=== PATIENT | female | born 1980 | race Caucasian/White ===

== ENCOUNTER 2017-01-01 10:50 | Day surgery (SDC) | payer MEDICAID, OTHER ==
[2016-12-31 16:08] VITALS: BMI 40.1
[2017-01-01] VITALS (15 sets, daily range): BP systolic 109–127; BP diastolic 52–76; PULSE 68–91; RESP 13–35; Ht 167.6 cm; Wt 111.7 kg
[~2017-01-01] VITALS: Ht 167.6 cm; Wt 111.7 kg
[2017-01-01] MEDS ORDERED: PROCHLORPERAZINE 10 MG INJ IV PRN (11:30)
[2017-01-01] MEDS ORDERED: DIPHENHYDRAMINE 50 MG INJ IV PRN (11:30)
[2017-01-01] MEDS ORDERED: MEPERIDINE 25 MG INJ IV PRN (11:30)
[2017-01-01] MEDS ORDERED: ONDANSETRON 4 MG INJ IV PRN ×2 (11:30→14:00)
[2017-01-01] MEDS ORDERED: HYDROmorphONE (0.2 MG/ML) 10ML SYG IV PRN ×2 (11:30)
[2017-01-01] MEDS ORDERED: OXYCODONE/ACETAMINOPHEN (5/325) TAB PO PRN ×4 (11:30→14:00)
[2017-01-01] MEDS ORDERED: FENTAnyl 50 MCG/ML VIAL IV PRN (11:30)
[2017-01-01] MEDS ORDERED: LIDOCAINE 2% (SDV) 5 ML INJ ONE (12:13)
[2017-01-01] MEDS ORDERED: MIDAZOLAM 1 MG/ML 2 ML INJ ONE (12:13)
[2017-01-01] MEDS ORDERED: SUCCINYLCHOLINE CHLORIDE 100 MG/5 ML SYG IV ONE (12:13)
[2017-01-01] MEDS ORDERED: PROPOFOL 20 ML ONE (12:13)
[2017-01-01] MEDS ORDERED: FENTAnyl 50 MCG/ML VIAL ONE (12:13)
[2017-01-01] MEDS ORDERED: BUPIVACAINE 0.5%/EPI (SDV) 10 ML INJ ONE (12:22)
[2017-01-01] MEDS ORDERED: CEFAZOLIN 1 GM INJ ONE (13:09)
[2017-01-01] MEDS ORDERED: ROCURONIUM 50 MG INJ ONE (13:09)
[2017-01-01] MEDS ORDERED: DEXAMETHASONE 4 MG/ML 1 ML INJ ONE (13:14)
[2017-01-01] MEDS ORDERED: METOCLOPRAMIDE 10 MG INJ ONE (13:14)
[2017-01-01] MEDS ORDERED: ONDANSETRON 4 MG INJ ONE (13:14)
[2017-01-01] MEDS ORDERED: HYDROmorphONE 2 MG/ML SYG ONE (13:31)
[2017-01-01] MEDS ORDERED: KETOROLAC 30 MG INJ ONE (13:31)
[2017-01-01] MEDS ORDERED: SUGAMMADEX SODIUM 200 MG/2 ML VIAL IV ONE (13:38)
--- NOTE | 2017-01-01 13:52 | OPR ---
Date/Time of Note Date/Time of Note DATE: 01/01/17 TIME: 13:49 Operative Report Preoperative Diagnosis Multiparity Postoperative Diagnosis Same. Operation/Procedure Performed Laparoscopic bilateral tubal ligation. Surgeon: ADELA SANCHES MD Second assist: KIN MOTA MD Anesthesia: general Estimated Blood Loss: minimal Complications: None ADELA SANCHES MD Jan 01, 2017 13:52
--- NOTE | 2017-01-01 13:53 | PD.PPDC ---
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 Condition Patient Condition: Good Diet Diet: Resume Regular Diet Activity/Restrictions Activity: Normal Activity May Shower Restrictions: No Lifting No Sexual Activity Nothing in the Vagina No [place] Wound/Drain Care Instructions Wound/Drain Care Instructions: Keep clean and dry Follow-up Follow-up with Physician: 2, Week/Weeks Return to clinic for [facility] MANAGER Instructions: Fever greater than 101 Worsening abdominal pain More than 2 pads per hour Unable to tolerate diet Surgical Instructions: Incisional Drainage Incisional Redness (Shower and change Band aids daily.) ADELA SANCHES MD Jan 01, 2017 13:53
[2017-01-01] MEDS ORDERED: LACTATED RINGER'S 1,000 ML IV SCH (14:00)
[2017-01-01] MEDS ORDERED: ACETAMINOPHEN 325 MG TAB PO PRN (14:00)
[2017-01-01] MEDS ORDERED: morphine 2 MG INJ IV PRN (14:00)
[2017-01-01] MEDS ORDERED: IBUPROFEN 600 MG TAB PO PRN (14:00)
--- NOTE | 2017-01-02 07:54 | OPR ---
DATE OF OPERATION: 01/01/2017 PREOPERATIVE DIAGNOSIS: Multiparity. POSTOPERATIVE DIAGNOSIS: Multiparity. OPERATIVE PROCEDURE: Laparoscopic bilateral tubal ligation. SURGEON: Partha Gonzalez MD ANESTHESIA: General. ANESTHESIOLOGIST: Elaina Vickers MD ESTIMATED BLOOD LOSS: Negligible. COMPLICATIONS: None. PROCEDURE IN DETAIL: With the patient under general anesthesia, laying on the table in the dorsal lithotomy position, her abdomen was prepped with ChloraPrep and her perineum and vagina with Betadine. After 3 minutes, she was draped in the usual sterile fashion for this procedure. A small 5-mm incision was made in the umbilicus of the patient. The Veress needle was inserted while we were tenting up the anterior abdominal wall. Once the tip of the needle was ascertained to be in, interpreted by the hanging drop procedure, it was then connected to the CO2 insufflator. Good pneumoperitoneum was obtained. The needle was removed and the 5-mm trocar was passed in. Through this port, a 5-mm laparoscope with the endocamera was inserted and the patient was placed in Trendelenburg position. The pelvic organs looked normal. A second port was inserted under direct vision, also 5 mm, in the hypogastric area. Through this port, the Kleppinger clamp was connected to the gyrus device and 35 franz of current was inserted. The right tube was picked up and a significant portion burned [id number] about 1.5 cm. The same was done on the contralateral side. There were no complications and no bleeding. Pictures were taken for documentation. All the instruments were then removed from the patient's abdomen, as well as much CO2 as possible. The incisions were infiltrated with 0.5 percent Marcaine with epinephrine, a total of 20 mL, and they were then closed with 4-0 Monocryl. Band-aids were applied and the patient was taken to the recovery room with all vital signs stable. Estimated blood loss was negligible. Needle, sponge, and instrument count at the end of the procedure was correct twice. Dictated By: Partha Gonzalez MD /jada/vargas /Document#: [id number]
== END 2017-01-01 16:05 | disposition home or self-care (01) ==
LOC: SDS 10:50
PROVIDERS: ATTEND Specialist
DX: Z30.2 Encounter for sterilization (principal)
CPT/HCPCS: 58670; 86850; 86900; 86901; 86920; J0690; J1100; J1170; J1885; J2250; J2405; J2765; J3010; J7999; Z7512; Z7610

== ENCOUNTER 2018-02-18 08:43 | Day surgery (SDC) | END 2018-02-18 15:40 | disposition home or self-care (01) ==